=== PATIENT | male | born 1980 | race Caucasian/White ===

== ENCOUNTER 2018-11-24 23:37 | Emergency (ER) | payer SELFPAY ==
[2018-11-24] MEDS ORDERED: Ondansetron 4 MG/2 ML SDV IVPUSH ONE (23:56)
[2018-11-24] MEDS ORDERED: Sodium Chloride 0.9% 2.5 ML Syringe FLUSH PRN (23:56)
[2018-11-24] MEDS ORDERED: Pantoprazole 40 MG Vial IVPUSH ONE (23:56)
[2018-11-24] MEDS ORDERED: Morphine 2 MG/ML Syringe IVPUSH ONE (23:56)
[2018-11-24] MEDS ORDERED: Sodium Chloride 0.9% 1,000 ML IV ONE (23:56)
[2018-11-24] MEDS ORDERED: Sodium Chloride 0.9% 10 ML Syringe FLUSH PRN (23:56)
--- NOTE | 2018-11-25 | EDM.PDOC ---
ED HPI GENERAL MEDICAL PROBLEM - General Chief Complaint: Abdominal Pain Stated Complaint: STOMACH PAIN Time Seen by Provider: 11/24/18 23:45 - History of Present Illness INITIAL COMMENTS - FREE TEXT/NARRATIVE: HISTORY AND PHYSICAL: History of present illness: The patient is a 38 y/o male with no significant abdominal surgical history who presents with complaints of left upper abdominal pain that started about 7 PM and then progressed to multiple episodes of vomiting. Patient had a normal bowel movement earlier today and it was normal without black or bloody stool but he does say that he has an ulcer in the past. He currently does not take any medications for GI problems. He also says that he has a history of gallstones and the position which is monitoring them. He says he did not eat any new foods or different foods today and he has had no issues with his gallstones or his ulcer history in the more recent days. He's had no fevers chills or upper respiratory symptoms no chest pain and no shortness of breath and no flank pain. He has no urinary symptoms. The patient says he feels thirsty but cannot tolerate even sips of water and he did not take any medications at home for this. He does not take [id number] antacids on any regular basis he does not take nonsteroidal anti-inflammatory drugs on any regular basis and he doesn't drink an excessive amount of caffeine. The patient describes the pain as sitting underneath his ribs on the left and towards the epigastrium and it is a burning stabbing like sensation and does not radiate. Review of systems: As per history of present illness and below otherwise all systems reviewed and negative. Past medical history: As per history of present illness and as reviewed below otherwise noncontributory. Surgical history: As per history of present illness and as reviewed below otherwise noncontributory. Social history: No reported history of drug or alcohol abuse. Family history: As per history of present illness and as reviewed below otherwise noncontributory. Physical exam: General: Well-developed well-nourished man who is nontoxic and vital signs are noted by me HEENT: Atraumatic, normocephalic, pupils reactive, negative for conjunctival pallor or scleral icterus, mucous membranes tacky throat clear, neck supple, nontender, trachea midline. Lungs: Clear to auscultation, breath sounds equal bilaterally, chest nontender. Heart: S1S2, regular, negative for clicks, rubs, or JVD. Abdomen: Soft, nondistended, mild tenderness on deep palpation in the left upper quadrant and left of the midline without rebound or guarding, bowel sounds are slightly hypoactive Negative for masses or hepatosplenomegaly. Negative for costovertebral tenderness. Pelvis: Stable nontender. Genitourinary: Deferred. Rectal: Deferred. Extremities: Atraumatic, negative for cords or calf pain. Neurovascular unremarkable. Neuro: Awake, alert, oriented. Cranial nerves II through XII unremarkable. Cerebellum unremarkable. Motor and sensory unremarkable throughout. Exam nonfocal. Diagnostics: EKG CBC CMP amylase lipase H. pylori CT scan of abdomen and pelvis Therapeutics: IV fluids Zofran Protonix and morphine Reglan Benadryl Dilaudid Patient says he is having persistent pain in the same area and that he has had some vomiting after the Zofran in small amounts. I will give him a dose of Reglan and Benadryl as well as some Dilaudid and reevaluate. The patient says he did have endoscopy back at home in [place] in July which revealed some stomach irritation but no H pylori and no other significant findings. Patient was sleeping when I entered the room and says that he is feeling better but not completely 100%. I discussed with him possible admission for observation for the vomiting and the pain and he declines that at this time. He says he would prefer to go back to where he is staying and sleep and I will give him prescriptions for tramadol Zofran and advise Prevacid [id number] for home. He is aware of my concerns and accepts. Impression: Left upper abdominal pain with vomiting Definitive disposition and diagnosis as appropriate pending reevaluation and review of above. LUQ abdomen Pain Score (Numeric/FACES): 10 - Related Data Allergies Allergy/AdvReac Type Severity Reaction Status Date / Time No Known Allergies Allergy Verified 11/24/18 23:50 Home Meds: Home Meds . [No Known Home Meds] 11/24/18 [History] ED ROS GENERAL - Review of Systems Review Of Systems: ROS reveals no pertinent complaints other than HPI. ED EXAM, GENERAL - Physical Exam Exam: See Below (See dictation) Course - Vital Signs Last Recorded V/S: Last Vital Signs Temp 36.1 C 11/25/18 02:32 Pulse 60 11/25/18 02:32 Resp 18 11/25/18 02:32 BP 130/80 11/25/18 02:32 Pulse Ox 97 11/25/18 02:32 - Orders/Labs/Meds Orders: Active Orders 24 hr Category Date Time Status EKG Documentation Completion [RC] STAT Care 11/24/18 23:56 Active Sodium Chloride 0.9% [Normal Saline] Med 11/25/18 00:30 Active 20 ml FLUSH STAT Sodium Chloride 0.9% [Normal Saline] 500 ml Med 11/25/18 02:30 Active IV STAT Sodium Chloride 0.9% [Saline Flush] Med 11/24/18 23:56 Active 10 ml FLUSH ASDIRECTED PRN Sodium Chloride 0.9% [Saline Flush] Med 11/24/18 23:56 Active 2.5 ml FLUSH ASDIRECTED PRN Saline Lock Insert [OM.PC] Stat Oth 11/24/18 23:56 Ordered Medication Orders Sodium Chloride (Normal Saline) 500 mls @ 999 mls/hr IV STAT [facility] Last Admin: 11/25/18 02:28 Dose: 999 mls/hr Sodium Chloride (Saline Flush) 10 ml FLUSH ASDIRECTED PRN PRN Reason: Keep Vein Open Sodium Chloride (Saline Flush) 2.5 ml FLUSH ASDIRECTED PRN PRN Reason: Keep Vein Open Sodium Chloride (Normal Saline) 20 ml FLUSH STAT [facility] Last Admin: 11/25/18 00:34 Dose: 20 ml Labs: Laboratory Tests 11/25/18 11/25/18 11/25/18 Range/Units 00:15 00:15 00:15 WBC 13.66 H (4.0-11.0) K/uL RBC 5.06 (4.50-5.90) M/uL Hgb 15.5 (13.0-17.0) g/dL Hct 42.4 (38.0-50.0) % MCV 83.8 (80.0-98.0) fL MCH 30.6 (27.0-32.0) pg MCHC 36.6 (31.0-37.0) g/dL RDW Std Deviation 38.3 (28.0-62.0) fl RDW Coeff of Yefri 13 (11.0-15.0) % Plt Count 206 (150-400) K/uL MPV 9.70 (7.40-12.00) fL Neut % (Auto) 77.4 (48.0-80.0) % Lymph % (Auto) 14.9 L (16.0-40.0) % [place] % (Auto) 6.4 (0.0-15.0) % Eos % (Auto) 1.2 (0.0-7.0) % Baso % (Auto) 0.1 (0.0-1.5) % Neut # (Auto) 10.6 H (1.4-5.7) K/uL Lymph # (Auto) 2.0 (0.6-2.4) K/uL [place] # (Auto) 0.9 H (0.0-0.8) K/uL Eos # (Auto) 0.2 (0.0-0.7) K/uL Baso # (Auto) 0.0 (0.0-0.1) K/uL Nucleated RBC % 0.0 /100WBC Nucleated RBCs # 0 K/uL Sodium 142 (136-148) mmol/L Potassium 3.9 (3.5-5.1) mmol/L Chloride 105 (98-107) mmol/L Carbon Dioxide 26.6 (21.0-32.0) mmol/L BUN 17 (7.0-18.0) mg/dL Creatinine 1.1 (0.8-1.3) mg/dL Est Cr Clr Drug Dosing 101.90 mL/min Estimated GFR (MDRD) > 60.0 ml/min Glucose 125 H (74-106) mg/dL Calcium 8.8 (8.5-10.1) mg/dL Total Bilirubin 0.4 (0.2-1.0) mg/dL AST 15 (15-37) IU/L ALT 30 (14-63) IU/L Alkaline Phosphatase 67 (46-116) U/L Total Protein 6.9 (6.4-8.2) g/dL Albumin 3.9 (3.4-5.0) g/dL Globulin 3.0 (2.6-4.0) g/dL Albumin/Globulin Ratio 1.3 (0.9-1.6) Amylase 20 L (25-115) U/L Lipase 95 (73-393) U/L H. pylori IgG Antibody NEGATIVE (NEG) Meds: Medications Generic Name Dose Route Start Last Admin Trade Name Freq PRN Reason Stop Dose Admin Sodium Chloride 500 mls @ 999 mls/hr 11/25/18 02:30 11/25/18 02:28 Normal Saline IV 999 mls/hr STAT GURINDER Administration Sodium Chloride 10 ml 11/24/18 23:56 Saline Flush FLUSH ASDIRECTED PRN Keep Vein Open Sodium Chloride 2.5 ml 11/24/18 23:56 Saline Flush FLUSH ASDIRECTED PRN Keep Vein Open Sodium Chloride 20 ml 11/25/18 00:30 11/25/18 00:34 Normal Saline FLUSH 20 ml STAT GURINDER Administration Discontinued Medications Generic Name Dose Route Start Last Admin Trade Name Longq PRN Reason Stop Dose Admin Diphenhydramine HCl 25 mg 11/25/18 02:16 11/25/18 02:32 Benadryl IVPUSH 11/25/18 02:17 25 mg ONETIME ONE Administration Hydromorphone HCl 0.5 mg 11/25/18 02:16 11/25/18 02:35 Dilaudid IVPUSH 11/25/18 02:17 Not Given ONETIME ONE Hydromorphone HCl 0.5 mg 11/25/18 02:22 11/25/18 02:29 Dilaudid IVPUSH 11/25/18 02:23 0.5 mg ONETIME STA Administration Sodium Chloride 1,000 mls @ 999 mls/hr 11/24/18 23:56 11/25/18 00:29 Normal Saline IV 11/25/18 00:56 999 mls/hr STAT ONE Administration Iopamidol 100 ml 11/25/18 01:55 11/25/18 01:55 Isovue Multipack-370 (76%) IVPUSH 11/25/18 01:56 100 ml ONETIME STA Administration Metoclopramide HCl 10 mg 11/25/18 02:16 11/25/18 02:30 Reglan IV 11/25/18 02:17 10 mg ONETIME ONE Administration Morphine Sulfate 4 mg 11/24/18 23:56 11/25/18 00:30 Morphine IVPUSH 11/24/18 23:57 4 mg ONETIME ONE Administration Ondansetron HCl 4 mg 11/24/18 23:56 03/08/19 00:30 Zofran IVPUSH 11/24/18 23:57 4 mg ONETIME ONE Administration Pantoprazole Sodium 80 mg 11/24/18 23:56 11/25/18 00:33 Protonix Iv IVPUSH 11/24/18 23:57 80 mg .BOLUS ONE Administration Departure - Departure Time of Disposition: 03:15 Disposition: Home, Self-Care 01 Condition: Good Clinical Impression: Abdominal pain Qualifiers: Abdominal location: left upper quadrant Qualified Code(s): R10.12 - Left upper quadrant pain Vomiting Qualifiers: Vomiting type: unspecified Vomiting Intractability: non-intractable Nausea presence: with nausea Qualified Code(s): R11.2 - Nausea with vomiting, unspecified - Discharge Information Referrals: PCP,None [Primary Care Provider] - Forms: ED Department Discharge Additional Instructions: The following information is given to patients seen in the emergency department who are being discharged to home. This information is to outline your options for follow-up care. We provide all patients seen in our emergency department with a follow-up referral. The need for follow-up, as well as the timing and circumstances, are variable depending upon the specifics of your emergency department visit. If you don't have a primary care physician on staff, we will provide you with a referral. We always advise you to contact your personal physician following an emergency department visit to inform them of the circumstance of the visit and for follow-up with them and/or the need for any referrals to a consulting specialist. The emergency department will also refer you to a specialist when appropriate. This referral assures that you have the opportunity for followup care with a specialist. All of these measure are taken in an effort to provide you with optimal care, which includes your followup. Under all circumstances we always encourage you to contact your private physician who remains a resource for coordinating your care. When calling for followup care, please make the office aware that this follow-up is from your recent emergency room visit. If for any reason you are refused follow-up, please contact the [facility] emergency department at and ask to speak to the emergency department charge nurse. [facility] Primary care- Internal Medicine and Family [address] [id number] Begin to take small sips of water and Gatorade as well as ice chips and when you feel ready take small bites of bland food over the next 24 hours. Use medications as prescribed and needed. Please call and schedule a follow-up appointment with one of our providers in the clinic or with your provider at home in [place]. Return to ER as needed and as discussed. Avoid caffeinated products fatty foods and eat a low-fat diet once her feeling better. You have been given Zofran and tramadol/Ultram from [facility]. You can buy over -the-counter Prevacid to take for the next 10-14 days. - My Orders Last 24 Hours: My Active Orders 11/24/18 23:56 EKG Documentation Completion [RC] STAT Sodium Chloride 0.9% [Saline Flush] 10 ml FLUSH ASDIRECTED PRN Sodium Chloride 0.9% [Saline Flush] 2.5 ml FLUSH ASDIRECTED PRN Saline Lock Insert [OM.PC] Stat 11/25/18 00:30 Sodium Chloride 0.9% [Normal Saline] 20 ml FLUSH STAT 11/25/18 02:30 Sodium Chloride 0.9% [Normal Saline] 500 ml IV STAT - Assessment/Plan Last 24 Hours: My Active Orders 11/24/18 23:56 EKG Documentation Completion [RC] STAT Sodium Chloride 0.9% [Saline Flush] 10 ml FLUSH ASDIRECTED PRN Sodium Chloride 0.9% [Saline Flush] 2.5 ml FLUSH ASDIRECTED PRN Saline Lock Insert [OM.PC] Stat 11/25/18 00:30 Sodium Chloride 0.9% [Normal Saline] 20 ml FLUSH STAT 11/25/18 02:30 Sodium Chloride 0.9% [Normal Saline] 500 ml IV STAT
[2018-11-25] MEDS ORDERED: Sodium Chloride 0.9% 20 ML SDV FLUSH SCH (00:30)
[2018-11-25 00:41] LABS: CHLORIDE,CL 105 mmol/L (98-107); SODIUM,NA 142 mmol/L (136-148)
[2018-11-25] MEDS ORDERED: Iopamidol 755 MG/ML 500 ML Multipack Bottle IVPUSH STA (01:55)
--- NOTE | 2018-11-25 02:06 | CT ---
INDICATION: Left lower quadrant pain TECHNIQUE: CT abdomen and pelvis acquired with IV contrast. 100 cc Isovue 370 COMPARISON: None FINDINGS: Lower chest: Small hiatal hernia. Liver: Periportal edema most likely iatrogenic. Spleen: Unremarkable. Pancreas: Unremarkable. Gallbladder and bile ducts: Multiple subcentimeter gallstones. Kidneys: Unremarkable. Adrenal glands: Unremarkable. GI tract: Unremarkable. Appendix is normal. Vascular structures: Unremarkable. Lymph nodes: Unremarkable. Miscellaneous: Unremarkable. No free air or significant free fluid. Pelvic Organs: Unremarkable. Bones: Unremarkable for age. IMPRESSION: No findings to explain the patient`s left lower quadrant pain. No evidence for diverticulitis. Multiple subcentimeter gallstones. Dictated by Damian Cuevas MD @ 11/25/2018 2:04:33 AM Please note that all CT scans at this facility use dose modulation, iterative reconstruction, and/or weight-based dosing when appropriate to reduce radiation dose to as low as reasonably achievable. Dictated by: Dmaian Cuevas MD @ 11/25/2018 02:04:40 (Electronically Signed)
[2018-11-25] MEDS ORDERED: Metoclopramide 10 MG/2 ML SDV IV ONE (02:16)
[2018-11-25] MEDS ORDERED: diphenhydrAMINE 50 MG/ML SDV IVPUSH ONE (02:16)
[2018-11-25] MEDS ORDERED: HYDROmorphone 2 MG/ML Syringe IVPUSH ONE (02:16)
[2018-11-25] MEDS ORDERED: HYDROmorphone 1 MG/ML Syringe IVPUSH STA (02:22)
[2018-11-25] MEDS ORDERED: Sodium Chloride 0.9% 500 ML IV SCH (02:30)
== END 2018-11-25 03:30 | disposition home or self-care (01) ==
LOC: MW.ED 23:37
DX: R10.12 Left upper quadrant pain (principal); R11.2 Nausea with vomiting, unspecified
CPT/HCPCS: 36415; 74177; 80053; 82150; 83690; 85025; 86677; 93005; 96361; 96374; 96375; 99284; C9113; J1170; J1200; J2270; J2405; J2765; J7040; Q9967; 99283